=== PATIENT | female | born 1940 | race Caucasian/White ===

== ENCOUNTER 2018-10-18 06:01 | Day surgery (SDC) | payer OTHER, MEDICAID ==
[2018-10-18] MEDS: SOD CHLORIDE 0.9% 1,000 ML IV (06:23)
[2018-10-18] MEDS: ACETAMINOPHEN 500 MG TAB PO (06:23)
[2018-10-18] MEDS ORDERED: EPHEDrine 25 MG/5 ML SYG ×2 (07:00→07:54)
[2018-10-18] MEDS ORDERED: METOCLOPRAMIDE 10 MG INJ (07:25)
[2018-10-18] MEDS ORDERED: PROPOFOL 20 ML (07:25)
[2018-10-18] MEDS ORDERED: CEFAZOLIN 1 GM INJ (07:25)
[2018-10-18] MEDS ORDERED: LIDOCAINE 2% (SDV) 5 ML INJ (07:25)
[2018-10-18] MEDS ORDERED: ONDANSETRON 4 MG INJ (07:25)
[2018-10-18] MEDS ORDERED: FENTAnyl 50 MCG/ML VIAL (07:25)
[2018-10-18] MEDS ORDERED: OXYCODONE/ACETAMINOPHEN (5/325) TAB PO ×3 (07:30→08:00)
[2018-10-18] MEDS ORDERED: FENTAnyl 50 MCG/ML VIAL IV ×2 (07:30)
[2018-10-18] MEDS ORDERED: ALBUTEROL 0.083% (NEB) 2.5 MG/3 ML AMP HHN (07:30)
[2018-10-18] MEDS ORDERED: HYDROmorphONE 1 MG/5 ML IV SYRINGE IV ×3 (07:30)
[2018-10-18] MEDS ORDERED: LABETALOL HCL 20MG INJ IV (07:30)
[2018-10-18] MEDS ORDERED: morphine 2 MG INJ IV ×3 (07:30→08:00)
[2018-10-18] MEDS ORDERED: ONDANSETRON 4 MG INJ IV ×2 (07:30→08:00)
[2018-10-18] MEDS ORDERED: MEPERIDINE 25 MG INJ IV (07:30)
[2018-10-18] MEDS ORDERED: DIPHENHYDRAMINE 50 MG INJ IV (07:30)
[2018-10-18] MEDS: BUPIVACAINE 0.25%/EPI (SDV) 30 ML INJ (07:42)
[2018-10-18] MEDS ORDERED: PHENYLephrine (100 MCG/ML) 10ML SYG (07:55)
[2018-10-18] MEDS ORDERED: ACETAMINOPHEN 325 MG TAB PO (08:00)
[2018-10-18] MEDS: BACITRACIN/POLYMYXIN 28.35 GM OINT TOP (08:13)
== END 2018-10-18 10:26 | disposition home or self-care (01) ==
LOC: SDS 06:01
DX: C44.41 Basal cell carcinoma of skin of scalp and neck (principal); I10 Essential (primary) hypertension; E78.5 Hyperlipidemia, unspecified
CPT/HCPCS: 14301; 88305; 88331